=== PATIENT | male | born 1995 | race Caucasian/White ===

== ENCOUNTER 2017-06-15 16:23 | Emergency (ER) | payer MEDICAID, MEDICARE ==
[~2017-06-15] VITALS: Ht 175.3 cm; Wt 76.0 kg
[2017-06-15 16:27] VITALS: BP 110/58
[2017-06-15] MEDS ORDERED: IBUPROFEN 800MG TABLET PO ONE (20:15)
== END 2017-06-15 21:51 | disposition home or self-care (01) ==
LOC: ER 16:23
DX: R07.0 Pain in throat (principal)
CPT/HCPCS: 87070; 87430; 99284

== ENCOUNTER 2017-07-21 13:20 | Emergency (ER) | payer MEDICAID ==
[~2017-07-21] VITALS: Ht 177.8 cm; Wt 75.0 kg
[2017-07-21] MEDS ORDERED: PHEN1PAC8 PO (14:11)
[2017-07-21 16:40] VITALS: BP 119/53
== END 2017-07-21 16:45 | disposition home or self-care (01) ==
LOC: ER 15:22
DX: J06.9 Acute upper respiratory infection, unspecified (principal); H10.10 Acute atopic conjunctivitis, unspecified eye; R03.0 Elevated blood-pressure reading, without diagnosis of hypertension; F17.210 Nicotine dependence, cigarettes, uncomplicated; F12.90 Cannabis use, unspecified, uncomplicated
CPT/HCPCS: 71045; 87804; 99285

== ENCOUNTER 2018-01-31 20:03 | Emergency (ER) | payer MEDICAID ==
[~2018-01-31] VITALS: Ht 175.3 cm; Wt 72.0 kg
[~2018-01-31 20:03] MED LIST: PHEN1PAC8 PO
[2018-01-31 21:59] VITALS: BP 120/71
== END 2018-01-31 22:00 | disposition home or self-care (01) ==
LOC: ER 20:03
DX: J30.9 Allergic rhinitis, unspecified (principal); J06.9 Acute upper respiratory infection, unspecified; Z79.899 Other long term (current) drug therapy
CPT/HCPCS: 99283